=== PATIENT | female | born 1985 | race Caucasian/White ===

== ENCOUNTER → 2018-11-06 21:06 | Emergency (ER) | payer BC, OTHER ==
[~2018-11-06 21:06] MED LIST: Azithromycin TAB* 250 MG PO ONE
--- NOTE | 2018-11-06 21:39 | ED ---
Skin Complaint - HPI Summary HPI Summary: The patient is a 33 year old F presenting to [facility] accompanied by her with a chief complaint of a cat scratch from last night on 11/05/18. The pt reports that her cat scratched her R index finger and it is swollen and numb. She rates the pain a 3/10. Nothing alleviates or aggravates her symptoms. She denies any other issues such as the swelling spreading up her hand and a fever. - History of Current Complaint Chief Complaint: EDExtremityUpper Time Seen by Provider: 11/06/18 21:27 Stated Complaint: CAT SCRATCH THAT IS INFECTED PER PT Hx Obtained From: Patient Onset/Duration: Started Days Ago - 11/05/18 at night, Still Present Skin Exposure Onset/Duration: Days Ago - 1 Timing: Constant Onset Severity: Moderate Current Severity: Mild Pain Intensity: 3 Pain Scale Used: 0-10 Numeric Skin Location: Discrete - R index finger Character: Swelling, Pain Aggravating Symptom(s): Nothing Alleviating Symptom(s): Nothing Associated Signs & Symptoms: Negative - Swelling radiating up the hand, fever, Tenderness - R index finger - Allergy/Home Medications Allergies/Adverse Reactions: Allergies Allergy/AdvReac Type Severity Reaction Status Date / Time No Known Allergies Allergy Verified 11/06/18 21:09 PMH/Surg Hx/FS Hx/Imm Hx Previously Healthy: No Endocrine/Hematology History: Denies: Hx Diabetes Cardiovascular History: Denies: Hx Hypertension - Surgical History Surgical History: None - Immunization History Immunizations Up to Date: Yes Infectious Disease History: No Infectious Disease History: Denies: Traveled Outside the [place] in Last 30 Days - Family History Known Family History: Positive: Hypertension - Social History Alcohol Use: Weekly Hx Substance Use: No Substance Use Type: Reports: None Hx Tobacco Use: No Smoking Status (MU): Never Smoked Tobacco Review of Systems Negative: Fever Positive: Other - Positive: swelling and scratch to the R index finger from her cat, denies swelling outside of the R index finger, All Other Systems Reviewed And Are Negative: Yes Physical Exam - Summary Physical Exam Summary: VITAL SIGNS: Reviewed. GENERAL: Patient is a well-developed and nourished female who is lying comfortable in the stretcher. Patient is not in any acute respiratory distress. HEAD AND FACE: No signs of trauma. No ecchymosis, hematomas or skull depressions. No sinus tenderness. EYES: PERRLA, EOMI x 2, No injected conjunctiva, no nystagmus. EARS: Hearing grossly intact. Ear canals and tympanic membranes are within normal limits. MOUTH: Oropharynx within normal limits. NECK: Supple, trachea is midline, no adenopathy, no JVD, no carotid bruit, no c- spine tenderness, neck with full ROM CHEST: Symmetric, no tenderness at palpation LUNGS: Clear to auscultation bilaterally. No wheezing or crackles. CVS: Regular rate and rhythm, S1 and S2 present, no murmurs or gallops appreciated. ABDOMEN: Soft, non-tender. No signs of distention. No rebound no guarding, and no masses palpated. Bowel sounds are normal. EXTREMITIES: FROM in all major joints, no edema, no cyanosis or clubbing. NEURO: Alert and oriented x 3. No acute neurological deficits. Speech is normal and follows commands. SKIN: Dry and warm, mild redness over the distal phalanx of the R index finger and mild scratch horn. Triage Information Reviewed: Yes Vital Signs On Initial Exam: Initial Vitals Temp Pulse Resp BP Pulse Ox 98.0 F 65 16 119/79 97 11/06/18 21:07 11/06/18 21:07 11/06/18 21:07 11/06/18 21:07 11/06/18 21:07 Vital Signs Reviewed: Yes Diagnostics - Vital Signs Vital Signs Temp Pulse Resp BP Pulse Ox 11/06/18 21:07 98.0 F 65 16 119/79 97 - Laboratory Lab Statement: Any lab studies that have been ordered have been reviewed, and results considered in the medical decision making process. Course/Dx - Course Course Of Treatment: The patient is a 33 year old F presenting to [facility] accompanied by her with a chief complaint of a cat scratch from last night on 11/05/18 due to her cat which caused swelling. Upon PE she has mild redness over the distal phalanx of the R index finger and mild scratch horn. She was given a 500 mg tab of Azithromyacin. The pt will be sent home with a dx of cat scratch of the R index finger and will be given Azithromyacin 250 mg tablets and instructed to follow up with her PCP in 2-3 days. - Diagnoses Provider Diagnoses: Cat scratch Discharge - Sign-Out/Discharge Documenting (check all that apply): Patient Departure - discharge Patient Received Moderate/Deep Sedation with Procedure: No - Discharge Plan Condition: Stable Disposition: HOME Prescriptions: Azithromycin TAB* [Zithromax TAB (Z-RAY) 250 mg #6 tabs] 250 mg PO DAILY #4 tab Patient Education Materials: Wound Healing and Your Diet (ED) Referrals: Portia Guadarrama MD [Primary Care Provider] - 2 Days Additional Instructions: Please follow up with your primary care physician in 2-3 days and to return to the emergency room with any new or worsening symptoms. - Attestation Statements Document Initiated by Scribe: Yes Documenting Scribe: Soren Reyes Provider For Whom Scribe is Documenting (Include Credential): Kyleigh Dhillon MD Scribe Attestation: ISoren, scribed for Kyleigh Dhillon MD on 11/06/18 at 2150. Status of Scribe Document: Ready
[2018-11-06 22:25] VITALS: BP 120/80
== END | disposition home or self-care (01) ==
LOC: ED 21:06
DX: S60.410A Abrasion of right index finger, initial encounter (principal); W55.03XA Scratched by cat, initial encounter
CPT/HCPCS: 99282; A9270-GY

== ENCOUNTER 2023-09-15 15:01 | Inpatient (IN) ==
[2023-09-15] MEDS ORDERED: Prochlorperazine 5 mg/ml 2 ml VIAL (10 mg) IV PRN (15:38)
[2023-09-15] MEDS ORDERED: Lidocaine 1% VIAL 10 MG/ML 30 ML VIAL INJ PRN (15:38)
[2023-09-15 17:02] LABS: Urine Benzodiazepine Screen None Detected (None Detect); Urine Opiates Screen None Detected (None Detect)
[2023-09-16] MEDS ORDERED: Oxytocin 10 UNITS/ML 1 ML VIAL IM PRN (00:46)
[2023-09-16] MEDS ORDERED: Glycerin ADULT 2.4 gm SUPP PR PRN (00:46)
[2023-09-16] MEDS ORDERED: Lactated Ringers 1000 ml BAG 1,000 ML IV SCH (01:00)
[2023-09-16] MEDS: Dibucaine 1% OINT 28.35 GM TUBE PR PRN (01:20)
[2023-09-16] MEDS: Witch Hazel PAD JAR TOPICAL PRN (01:20)
[2023-09-16 07:18] LABS: ABS Basophils 0.1 10^3/uL (0.0-0.1); ABS Monocytes 1.5 10^3/uL (0.0-0.9); ABS Neutrophils 19.3 10^3/uL (1.5-7.6); ABS Nucleated RBC 0.01 10^3/ul; Hematocrit 32.1 % (35-45); Hemoglobin 10.8 g/dL (11.5-14.3); Lymphocyte % 4.6 %; Mean Corpuscular Hemoglobin 28.4 pg (27-33); Mean Corpuscular Hgb Conc 33.7 g/dL (31-36); Platelet Count 268 10^3/uL (150-450); Red Blood Count 3.82 10^6/uL (3.63-4.92); Red Cell Distribution Width 14.5 % (12-17); White Blood Count 21.8 10^3/uL (3.8-11.8)
[2023-09-16 19:58] VITALS: BP 109/60
[2023-09-17] MEDS: Buffered Lidocaine 1% SYRIN 1 ml INTRADERM ONE (00:35)
[2023-09-17] MEDS: Lactated Ringers 1000 ml BAG 1,000 ML IV ONE (00:35)
[2023-09-17] MEDS: Lactated Ringers 1000 ml BAG 1,000 ML IV SCH (00:36)
== END 2023-09-17 16:41 | disposition home or self-care (01) | DRG 560 ==
LOC: MCHOBOUT 15:01 → MCHOB 15:09
PROVIDERS: ADMIT Registered Nurse; ATTEND Registered Nurse